=== PATIENT | female | born 1985 | race Caucasian/White ===

== ENCOUNTER → 2017-05-28 | Outpatient (CLI) | payer OTHER ==
[~2017-05-28] MED LIST: AMOX1TAB43 PO
== END | disposition home or self-care (01) ==
LOC: C.PAPS 14:30
PROVIDERS: ATTEND Obstetrics & Gynecology
DX: Z01.419 Encounter for gynecological examination (general) (routine) without abnormal findings (principal)

== ENCOUNTER 2021-08-15 12:19 | Observation (INO) ==
[2021-08-15] MEDS ORDERED: ONDANSETRON INJ 2 MG/ML 2 ML VIAL IV STA (14:27)
[2021-08-15] MEDS ORDERED: MoRPHine SULFATE 4 MG/ML 1 ML CARP\\VIAL IV STA ×2 (14:27→16:47)
--- NOTE | 2021-08-15 14:27 | Emergency Department Note ---
History of Present Illness General Chief complaint: Back Injury/Pain Stated complaint: SEVERE BACK PAIN,HX OF SURG Time Seen by Provider: 08/15/21 14:17 History of Present Illness Maximum Pain Intensity: 8 This is a 36-year-old female with a history of lumbar spine surgery in 2019 that presents to the emergency department via private vehicle with complaints of "severe back pain". Pain is in the left low back that radiates down the left leg to the ankle. The patient states that last week she "tweaked" her back and developed some back pain since that time. She states that she slipped on some ice. She denies striking the head or loss of consciousness. This past Friday her pain acutely worsened. Then worsened again this morning. She was on the floor and could not get up. She notes pain predominantly rating down her left leg. There is some numbness/tingling in the left leg. She denies any lower extremity weakness, bowel or bladder incontinence, numbness or tingling in ge nital region. Pain currently 10/10. She tried ibuprofen earlier today. No urinary symptoms. No abdominal pain. No fevers, chills, chest pain or shortness of breath. No recent illness. The patient states that August 2018 she underwent surgery at the L4-L5 region for herniated disc on the left side. There is no residual hardware. Patient states that she was doing well up until about a week ago. Surgery was performed in [place] by Dr. Salazar Mullen. Home Medications Medication Instructions Recorded Confirmed Type albuterol sulfate 90 mcg/actuation 1 - 2 puff INHALATION .Q4-6H PRN 03/22/20 08/15/21 History aerosol inhaler prenat.vits,anel,qau-kyyy-eeyva 1 tab PO DAILY 03/22/20 08/15/21 History ibuprofen 200 mg tablet 200 mg PO Q6H PRN 08/15/21 08/15/21 History Allergies Allergy/AdvReac Type Severity Reaction Status Date / Time morphine Allergy Intermediate Arm Verified 08/15/21 19:09 rash/itchy proximal to IV admininstration site. latex Allergy Unknown red rash Verified 08/15/21 15:49 with latex gloves Past Med/Surg History Medical History (Updated 08/16/21 @ 09:44 by Yohan Hair) Asthma "EXERCISE INDUCED" Chronic headache Dichorionic diamniotic twin gestation Encounter for anatomic survey H/O acute endometritis History of chicken pox Need for rhogam due to Rh negative mother Pyloric stenosis, congenital S/P REPAIR IN INFANCY Supervision of normal IUP (intrauterine ) in multigravida Surgical History (Updated 08/16/21 @ 09:44 by Yohan Hair) History of repair of pyloric stenosis INFANCY History of tooth extraction Previous delivery affecting , antepartum S/P section X2 [place] teeth extracted Family History Sister Asthma Brother Asthma Grandmother (Paternal) Breast cancer Denies family history of Ovarian cancer Colorectal cancer Social History Smoking Status: Never smoker Second Hand Exposure: No; Do You Dip or Chew Tobacco: No; Tobacco Cessation Education Requested by Patient: No Hx Alcohol Use: No Hx Substance Use: No Preferred Language: [place] Communication Ability: Effective Shipping Order Clerk Required: No Beliefs That Will Affect Care: None marital status: marital status details: Thor Dubose (36) Current Living Situation: Family Current Living Situation Comment: lives with spouse, 2 children, outside cat current occupational status: unemployed current occupation: homemaker Other Information That Helps Us Care for You: No Feels Safe at Home: Yes Safety Concerns: Feels Safe At This Time Assistive Devices: Walker Review of Systems A total of 10 systems reviewed and were otherwise negative Physical Exam Vital Signs Vital Signs - 24 hr 08/15/21 18:00 08/15/21 20:00 Pulse Rate [Left Finger] 72 72 Respiratory Rate 20 18 Respiratory Effort / Characteristics Non-Labored Spontaneous Non-Labored Spontaneous Respiratory Depth Normal Normal Respiratory Pattern Regular Regular Blood Pressure [Right Arm] 132/80 128/73 Blood Pressure Mean [Right Arm] 97 91 Blood Pressure Position [Right Arm] Sitting Sitting Pulse Oximetry 97 97 Oxygen Delivery Method Room Air Room Air VITAL SIGNS - Vital signs and nursing notes were reviewed. Stable and afebrile. GENERAL -36-year-old female appearing her stated age who is in no acute distress but appears to be in pain and is sitting at the bedside in a wheelchair. Communicates well with provider and answers questions appropriately. SKIN - Without rashes. No meningeal or petechial rash. HEAD - NC/AT. EYES -Sclera anicteric. LUNGS - Chest wall symmetric without accessory muscle use, intercostals retractions, or central cyanosis. Normal vesicular breath sounds CTA B/L. No wheezes, rales, or rhonchi appreciated. CARDIAC - RRR with S1/S2. No murmur, rubs, or gallops appreciated. EXTREMITIES - No clubbing or peripheral cyanosis. +5/5 strength noted in UE/LE bilaterally. NEUROLOGIC - Cranial nerves II through XII grossly intact. Sensory intact to light touch throughout. Patellar reflexes +2/4. PSYCH - A&O, and cooperates fully with examiner. Pt is very pleasant and interacts well with examiner. Course Administered Medications Acetaminophen (Acetaminophen 500 Mg Tab) 1,000 mg PO Q8H MAYTE Stop: 09/15/21 05:59 Last Admin: 08/16/21 14:04 Dose: 1,000 mg Documented by: [id number] Admin: 08/16/21 05:45 Dose: 1,000 mg Documented by: [id number] Dexamethasone 4 mg/ Syringe 1 mls @ 1 mls/min IV Q8H MAYTE Stop: 09/15/21 05:59 Last Admin: 08/16/21 05:46 Dose: 1 mls/min Documented by: [id number] Magnesium Sulfate/Dextrose (Magnesium Sulfate / D5w) 1 gm in 100 mls @ 50 mls/hr IV Q2H MAYTE Stop: 08/16/21 19:59 Last Admin: 08/16/21 14:04 Dose: 50 mls/hr Documented by: [id number] Ketorolac Tromethamine (Ketorolac 30 Mg/Ml Vial) 30 mg IV Q6H MAYTE Stop: 08/21/21 11:44 Last Admin: 08/16/21 13:00 Dose: 30 mg Documented by: [id number] Discontinued Medications Acetaminophen (Acetaminophen 325 Mg Tab) 1,000 mg PO Q8H MAYTE Stop: 09/14/21 21:44 Last Admin: 08/15/21 21:45 Dose: 1,000 mg Documented by: [id number] Acetaminophen (Acetaminophen 500 Mg Tab) Confirm Administered Dose 1,000 mg .ROUTE .STK-MED ONE Stop: 08/15/21 21:50 Last Admin: 08/15/21 21:50 Dose: Not Given Documented by: [id number] Dexamethasone Sodium Phosphate (DexamethasonePf 10 Mg/Ml Vial) 10 mg IV NOW ONE Stop: 08/15/21 19:06 Last Admin: 08/15/21 19:18 Dose: 10 mg Documented by: [id number] Diphenhydramine HCl (Diphenhydramine 50 Mg/Ml Vial) Confirm Administered Dose 50 mg .ROUTE .STK-MED ONE Stop: 08/15/21 17:12 Last Admin: 08/15/21 17:14 Dose: 25 mg Documented by: [id number] Ketorolac Tromethamine (Ketorolac Tromethamine 15 Mg/Ml Vial) 15 mg IV NOW STA Stop: 08/15/21 18:23 Last Admin: 08/15/21 18:28 Dose: 15 mg Documented by: [id number] Morphine Sulfate (Morphine Sulfate 4 Mg/Ml 1 Ml Carp\\Vial) 4 mg IV NOW STA Stop: 08/15/21 14:28 Last Admin: 08/15/21 15:24 Dose: 4 mg Documented by: [id number] Morphine Sulfate (Morphine Sulfate 4 Mg/Ml 1 Ml Carp\\Vial) 4 mg IV NOW STA Stop: 08/15/21 16:48 Last Admin: 08/15/21 17:07 Dose: 4 mg Documented by: [id number] Ondansetron HCl (Ondansetron Inj 2 Mg/Ml 2 Ml Vial) 4 mg IV NOW STA Stop: 08/15/21 14:28 Last Admin: 08/15/21 15:24 Dose: 4 mg Documented by: [id number] Medical Decision Making Laboratory Data Result diagrams: 08/15/21 20:20 08/15/21 20:20 Lab Results 08/15/21 08/15/21 08/15/21 Range/Units 20:20 20:20 20:20 WBC 11.18 H (4.8-10.8) K/uL RBC 4.30 (4.2-5.4) M/uL Hgb 13.4 (12.0-16.0) g/dL Hct 38.8 (37-47) % MCV 90.2 (80-100) fL MCH 31.2 (25-34) pg MCHC 34.5 (32-36) g/dL RDW Std Deviation 42.5 (36.4-46.3) fL RDW Coeff of Pamela 12.9 (11.5-14.5) % Plt Count 252 (130-400) K/uL MPV 10.6 H (7.4-10.4) fL Immature Gran % (Auto) 0.2 % Neut % (Auto) 81.8 % Lymph % (Auto) 14.5 % Glenn % (Auto) 3.0 % Eos % (Auto) 0.4 % Baso % (Auto) 0.1 % Neut # (Auto) 9.15 H (1.4-6.5) K/uL Lymph # (Auto) 1.62 (1.2-3.4) K/uL Glenn # (Auto) 0.33 (0.11-0.59) K/uL Eos # (Auto) 0.05 (0-0.5) K/uL Baso # (Auto) 0.01 (0-0.2) K/uL Immature Gran # (Auto) 0.02 (0.00-0.02) K/uL Sodium 137 (136-145) mmol/L Potassium 3.9 (3.5-5.1) mmol/L Chloride 104 (98-107) mmol/L Carbon Dioxide 26 (21-32) mmol/L Anion Gap 7 (3-11) BUN 12 (6-23) mg/dl Creatinine 0.62 (0.6-1.2) mg/dl Est Cr Clr Drug Dosing 119.7 ml/min Est GFR ( Amer) 136.4 ml/min Est GFR (Non-Af Amer) 117.6 ml/min BUN/Creatinine Ratio 19.4 (10-20) Glucose 102 H (70-99(Fasting)) mg/dl Calcium 9.6 (8.5-10.1) mg/dl Total Bilirubin 0.5 (0.2-1.0) mg/dl AST 20 (13-39) U/L ALT 32 (7-52) U/L Alkaline Phosphatase 72 (34-104) U/L Total Protein 7.9 (6.0-8.3) gm/dl Albumin 4.9 (3.4-5.0) gm/dl Globulin 3.0 (2.5-4.0) gm/dl Albumin/Globulin Ratio 1.6 (0.9-2) HCG, Qual Negative (Negative) SARS-CoV-2, RNA, NAAT (NEGATIVE) 08/15/21 Range/Units 20:40 WBC (4.8-10.8) K/uL RBC (4.2-5.4) M/uL Hgb (12.0-16.0) g/dL Hct (37-47) % MCV (80-100) fL MCH (25-34) pg MCHC (32-36) g/dL RDW Std Deviation (36.4-46.3) fL RDW Coeff of Pamela (11.5-14.5) % Plt Count (130-400) K/uL MPV (7.4-10.4) fL Immature Gran % (Auto) % Neut % (Auto) % Lymph % (Auto) % Glenn % (Auto) % Eos % (Auto) % Baso % (Auto) % Neut # (Auto) (1.4-6.5) K/uL Lymph # (Auto) (1.2-3.4) K/uL Glenn # (Auto) (0.11-0.59) K/uL Eos # (Auto) (0-0.5) K/uL Baso # (Auto) (0-0.2) K/uL Immature Gran # (Auto) (0.00-0.02) K/uL Sodium (136-145) mmol/L Potassium (3.5-5.1) mmol/L Chloride (98-107) mmol/L Carbon Dioxide (21-32) mmol/L Anion Gap (3-11) BUN (6-23) mg/dl Creatinine (0.6-1.2) mg/dl Est Cr Clr Drug Dosing ml/min Est GFR ( Amer) ml/min Est GFR (Non-Af Amer) ml/min BUN/Creatinine Ratio (10-20) Glucose (70-99(Fasting)) mg/dl Calcium (8.5-10.1) mg/dl Total Bilirubin (0.2-1.0) mg/dl AST (13-39) U/L ALT (7-52) U/L Alkaline Phosphatase (34-104) U/L Total Protein (6.0-8.3) gm/dl Albumin (3.4-5.0) gm/dl Globulin (2.5-4.0) gm/dl Albumin/Globulin Ratio (0.9-2) HCG, Qual (Negative) SARS-CoV-2, RNA, NAAT NEGATIVE (NEGATIVE) Imaging Data Radiologist's Impression: Lumbar Spine MRI 08/15/21 14:26 MR lumbar spine wo con CLINICAL HISTORY: L lumbar radiculopathy, cannot walk, hx surgery TECHNIQUE: Multiplanar sequences through the lumbar spine were obtained, without intravenous contrast. Comparison: Comparison is made to MRI lumbar spine 04/15/2020 FINDINGS: The alignment is anatomical. Degenerative changes are seen most prominent at L4-L5. L1-L2: No significant abnormality. L2-L3: No significant abnormality. L3-L4: No significant abnormality. L4-L5: There is a left greater than right posterior disc bulge with resulting mild canal stenosis and moderate left neuroforaminal stenosis. L5-S1: No significant abnormality. The spinal ligaments are intact, without evidence of disruption or abnormal signal intensity. The spinal cord is normal in signal intensity and there is no evidence of cord contusion. There is no evidence of an extradural, intradural, extramedullary or intramedullary lesion. Visualized soft tissues are normal. IMPRESSION: Interval worsening of left greater than right posterior disc bulge at L4-L5 with resulting mild canal stenosis and moderate left neural foraminal stenosis. ACT 112: Negative or not required by law. Electronically signed by: Kenton Rich M.D. 08/15/2021 6:34 PM MDM Narrative Patient was seen and evaluated as above in room C7. Review was performed of nursing notes and vital signs. I did review pertinent previous visits and patient history. After obtaining a thorough history and physical examination the above work up was performed. Patient presents to us today with low back pain. She has a well-documented history of lumbar radiculopathy. I did see the patient in December 2019 for similar and she underwent MRI at that time. On today's presentation her pain seems to be worse. No recent illness. No fevers. No evidence of cauda equina syndrome clinically. Options of care were discussed with the patient. IV access was established. She was medicated with IV morphine, IV Zofran with some relief. Second dose then provided prior to MRI of the L-spine which was felt to be warranted based on her symptoms at the present time. She then developed a slightly erythematous rash to the left arm proximal to the administration site in the IV and felt an odd sensation in the jaw/mouth region. No tongue or throat swelling. No systemic hives. No evidence of anaphylaxis. She was given 25 mg IV Benadryl. Symptoms then resolved. Upon returning from MRI pain was still present. 15 mg of IV Toradol was ordered. I reviewed the MRI results with the patient. Patient does have interval worsening of left greater than right posterior disc bulge at L4-L5 with resulting mild canal stenosis and moderate left neuroforaminal stenosis. IV Decadron then ordered after discussing benefits and risks. It is felt that the benefit outweighs the risk. She preferred to be discharged home to follow-up in the outpatient setting which I believe is reasonable. I then prepared her discharge instructions and sent a Medrol Dosepak and [place] to her pharmacy for pickup. Ambulatory trial then attempted and the patient simply stood near her wheelchair and was not able to move secondary to pain. We then discussed additional options and through shared decision making we will proceed with inpatient management. Do not believe that she requires emergent transfer or surgery at the present time however certainly her clinical course may change. Case discussed with the hospitalist service. Basic laboratory studies and Covid testing were negative for any emergent process. Please refer to further documentation regarding her stay. Being as though the patient is now being admitted, I did call the pharmacy at (21:30pm) to cancel the prescriptions that were sent. While in the department, I personally reevaluated the patient several times and each time the patient was found to be resting comfortably. The patient was educated upon management, educated upon todays findings/results, educated upon importance of follow up from today's visit, educated upon symptoms in which to return, had questions answered prior to discharge, verbalized understanding, and was discharged home in good condition. Case was discussed with the attending physician. GCS: 15 In the evaluation and treatment of this patient the following differential diagnosis entertained: Fracture, dislocation, subluxation, cauda equina syndrome, AAA, diverticulitis, appendicitis, torsion, osteomyelitis, piriformis syndrome, strain, sprain, among others. Impression & Plan Acute lumbar radiculopathy, Intractable low back pain, Abnormal magnetic resonance imaging of lumbar spine Discharge Plan Visit Data Chief Complaint: Back Injury/Pain Stated Complaint: SEVERE BACK PAIN,HX OF SURG ED Provider: Phil Cornelius ED Midlevel Provider: Robinson Pedraza Discharge Problem: Acute lumbar radiculopathy, Intractable low back pain, Abnormal magnetic re sonance imaging of lumbar spine Patient Disposition: Admitted As Inpatient Condition: Good Discharge Instructions Interventions: ED Discharge Assessment Last Done: 08/15/21 23:21
[2021-08-15] MEDS ORDERED: diphenhydrAMINE 50 MG/ML VIAL ONE (17:11)
[2021-08-15] MEDS ORDERED: KETOROLAC TROMETHAMINE 15 MG/ML VIAL IV STA (18:22)
--- NOTE | 2021-08-15 18:35 | Magnetic Resonance Report ---
MR lumbar spine wo con CLINICAL HISTORY: L lumbar radiculopathy, cannot walk, hx surgery TECHNIQUE: Multiplanar sequences through the lumbar spine were obtained, without intravenous contrast . Comparison: Comparison is made to MRI lumbar spine 04/15/2020 FINDINGS: The alignment is anatomical. Degenerative changes are seen most prominent at L4-L5. L1-L2: No significant abnormality. L2-L3: No significant abnormality. L3-L4: No significant abnormality. L4-L5: There is a left greater than right posterior disc bulge with resulting mild canal stenosis and moderate left neuroforaminal stenosis. L5-S1: No significant abnormality. The spinal ligaments are intact, without evidence of disruption or abnormal signal intensity. The spi nal cord is normal in signal intensity and there is no evidence of cord contusion. There is no eviden ce of an extradural, intradural, extramedullary or intramedullary lesion. Visualized soft tissues are normal. IMPRESSION: Interval worsening of left greater than right posterior disc bulge at L4-L5 with resulting mild canal stenosis and moderate left neural foraminal stenosis. ACT 112: Negative or not required by law. Electronically signed by: Kenton Rich M.D. 08/15/2021 6:34 PM
[2021-08-15] MEDS ORDERED: dexAMETHasone**PF** 10 MG/ML VIAL IV ONE (19:05)
[2021-08-15 20:41] LABS: Basophils # (auto) 0.01 K/uL (0-0.2); Basophils % (auto) 0.1 %; Eosinophils # (auto) 0.05 K/uL (0-0.5); Eosinophils % (auto) 0.4 %; Hematocrit (blood only) 38.8 % (37-47); Hemoglobin 13.4 g/dL (12.0-16.0); Immature Granulocytes # (auto) 0.02 K/uL (0.00-0.02); Immature Granulocytes % (auto) 0.2 %; Lymphocytes # (auto) 1.62 K/uL (1.2-3.4); Lymphocytes % (auto) 14.5 %; Mean Corpuscular Hemoglobin 31.2 pg (25-34); Mean Corpuscular Hgb Conc 34.5 g/dL (32-36); Mean Corpuscular Volume 90.2 fL (80-100); Mean Platelet Volume 10.6 fL (7.4-10.4); Monocytes # (auto) 0.33 K/uL (0.11-0.59); Neutrophils # (auto) 9.15 K/uL (1.4-6.5); Neutrophils % (auto) 81.8 %; Platelet Count 252 K/uL (130-400); RDW Coefficient of Variation 12.9 % (11.5-14.5); RDW Standard Deviation 42.5 fL (36.4-46.3); White Blood Count 11.18 K/uL (4.8-10.8)
[2021-08-15 21:00] LABS: Albumin Globulin Ratio 1.6 (0.9-2); Albumin Level 4.9 gm/dl (3.4-5.0); BUN Creatinine Ratio 19.4 (10-20); Bilirubin,Total 0.5 mg/dl (0.2-1.0); Calcium 9.6 mg/dl (8.5-10.1); Creatinine Clr Calc Pharmacy 119.7 ml/min; Est GFR (African American) 136.4 ml/min; Est GFR (Non-African American) 117.6 ml/min; Potassium 3.9 mmol/L (3.5-5.1); Total Protein 7.9 gm/dl (6.0-8.3)
[2021-08-15 21:03] LABS: Pregnancy Test, Serum Negative (Negative)
--- NOTE | 2021-08-15 21:22 | History & Physical Report ---
Date of Service August 15, 2021 Assessment & Plan (1) Acute lumbar radiculopathy: Plan: 36 yo F Hx mild intermittent asthma admitted for acute lumbar radiculopathy. Lumbar radiculopathy: -Presented with several days of worsening lumbar back pain in the setting of several injuries this week. -Lumbar MRI shows L>R posterior disc bulge with mild canal stenosis and moderate neuroforaminal stenosis. -Already received morphine 4mg x2, Decadron 10mg IV in ER with mild improvement in pain and still with difficulty with moving. -Will continue Decadron 4mg IV q8h for now for lumbar radiculopathy. -Scheduled Tylenol 1000mg q8h, with Toradol as needed for pain. Can add opiates if pain is refractory to these medications. -No evidence of cauda equina on exam. -Consider Ortho consult if worsening symptoms or not improving despite the above measures. -Encouraged ambulation as able. Code Status: FULL CODE FEN: Regular diet DVT ppx: SCDs; low risk Dispo: Med/Surg History of Present Illness Primary Care Provider: WILD Prieto 36 yo F Hx mild intermittent asthma presented to the ER for several days of lumbar area back pain which acutely worsened earlier today. Denies associated numbness or tingling of the lower extremities, bowel or bladder incontinence. Timelines is as follows: Last Friday patient was reaching down for her laundry basket and "tweaked" her lumbar area. Later that same day she was walking to her chicken coop and slipped without falling and caught herself, causing further pain. Pain started to worsen this past Friday. On Friday she went to the chiropractor for an adjustment without much improvement in pain. Earlier today she was reaching for one of her children in the backseat and had acute worsening of the pain causing her to be unable to walk due to pain. In the ER patient was given Decadron, Toradol, and morphine with some improvement in pain but still with severe pain with movement. Hospitalist service consulted for admission for pain control. Allergies Allergy/AdvReac Type Severity Reaction Status Date / Time morphine Allergy Intermediate Arm Verified 08/15/21 19:09 rash/itchy proximal to IV admininstration site. latex Allergy Unknown red rash Verified 08/15/21 15:49 with latex gloves Home Medications Medication Instructions Recorded Confirmed Type albuterol sulfate 90 mcg/actuation 1 - 2 puff INHALATION .Q4-6H PRN 03/22/20 08/15/21 History aerosol inhaler prenat.vits,anel,[id number]-[id number] 1 tab PO DAILY 03/22/20 08/15/21 History ibuprofen 200 mg tablet 200 mg PO Q6H PRN 08/15/21 08/15/21 History Past Med/Surg History Medical History (Updated 08/16/21 @ 09:44 by Yohan Hair) Asthma "EXERCISE INDUCED" Chronic headache Dichorionic diamniotic twin gestation Encounter for anatomic survey H/O acute endometritis History of chicken pox Need for rhogam due to Rh negative mother Pyloric stenosis, congenital S/P REPAIR IN INFANCY Supervision of normal IUP (intrauterine ) in multigravida Surgical History (Updated 08/16/21 @ 09:44 by Yohan Hair) History of repair of pyloric stenosis INFANCY History of tooth extraction Previous delivery affecting , antepartum S/P section X2 [place] teeth extracted Family History Sister Asthma Brother Asthma Grandmother (Paternal) Breast cancer Denies family history of Ovarian cancer Colorectal cancer Social History Smoking Status: Never smoker Second Hand Exposure: No; Do You Dip or Chew Tobacco: No; Tobacco Cessation Education Requested by Patient: No Hx Alcohol Use: No Hx Substance Use: No Preferred Language: Japanese Communication Ability: Effective Consulting Technical Manager Required: No Beliefs That Will Affect Care: None marital status: marital status details: Thor Dubose (36) Current Living Situation: Family Current Living Situation Comment: lives with spouse, 2 children, outside cat current occupational status: unemployed current occupation: homemaker Other Information That Helps Us Care for You: No Feels Safe at Home: Yes Safety Concerns: Feels Safe At This Time Assistive Devices: Walker Review of Systems Review of Systems: All systems reviewed & are unremarkable except as noted in HPI & below Constitutional: + malaise; no fever and no chills Respiratory: no cough and no dyspnea Cardiovascular: no chest pain, no palpitations and no edema Gastrointestinal: no abdominal pain, no constipation and no diarrhea/loose stools Genitourinary: no dysuria and no hematuria Physical Exam Constitutional: WD/WN, vitals as above Eyes: PERRL, conjunctivae normal, anicteric sclerae ENMT: external ear and nose normal, oropharynx normal Neck: normal visual inspection Respiratory: normal respiratory effort, lungs clear to auscultation Cardiovascular: RRR, no murmur, no edema Gastrointestinal (Abdomen): normal bowel sounds, soft, nontender, no hepatos plenomegaly Musculoskeletal: no cyanosis or clubbing, extremities motor strength 5/5 Skin: no rashes, warm and dry Neurologic: Normal speech. PERRLA, EOMI, no nystagmus. Normal visual acuity bilaterally. Bilateral UE, LE, and face without sensory or motor deficits. DTRs normal No decreased sensation over bilateral LE Psychiatric: A+Ox3, euthymic affect Results & Data Results & Data ([facility]) Vital Signs (Past 12 Hours) Vital Signs Temp Pulse Pulse Resp BP BP Pulse Ox 08/15/21 18:00 72 20 132/80 97 08/15/21 16:00 70 20 130/82 98 08/15/21 14:16 69 20 116/67 98 08/15/21 12:22 36.6 C 84 18 140/82 98 Supervising Physician Co-Signing Physician Notes Attending addendum: I have physically seen this patient, have supervised the medical residents activities, and agree with the H&P unless as otherwise noted. Assessment and Plan: Low back pain/lumbar radiculopathy- Status post Decadron 10 mg IV and morphine 4 mg IV x2 Decadron 4 mg IV every 8 hours Acetaminophen 1000 mg p.o. every 8 hours as needed mild pain or fever Follows with [facility] orthopedic spine surgery remaining orders and notations as noted Resident Activity Tracking Resident Involvement: Resident Care Provided Care Provided: Adult Hospital Medicine
[2021-08-15] MEDS ORDERED: KETOROLAC 30 MG/ML VIAL IV PRN (21:37)
[2021-08-15] MEDS ORDERED: ACETAMINOPHEN 325 MG TAB PO SCH (21:45)
[2021-08-15] MEDS ORDERED: ACETAMINOPHEN 500 MG TAB ONE (21:49)
[2021-08-15] MEDS ORDERED: ONDANSETRON INJ 2 MG/ML 2 ML VIAL IV PRN (23:56)
[2021-08-15] MEDS ORDERED: POLYETHYLENE (MIRALAX) 17 GM PACK PO PRN (23:56)
[2021-08-16] MEDS: ACETAMINOPHEN 500 MG TAB PO SCH ×3 (05:45→21:14)
[2021-08-16] MEDS: dexAMETHasone 4 MG in SYRINGE 0 ML IV SCH ×3 (05:46→21:14)
--- NOTE | 2021-08-16 09:33 | Medical Student Progress Note ---
Date of Service August 16, 2021 Assessment & Plan (1) Acute lumbar radiculopathy: Plan: This is a 36 year old female with a history of L4-L5 disc herniation and radiculopathy s/p L4-L5 microdiscectomy in 2019 who presents for intractable back pain. Back Pain - biomechanical vs. radicular: no neurological symptoms, pain more localized to her lower back than sciatic pain raises suspicion for mostly biomechanical with some radicular component - Lumbar MRI shows L4-L5 L>R posterior disc bulge with mild canal stenosis and moderate neuroforaminal stenosis - Scheduled Tylenol, Decadron, Toradol for pain control and Valium and Magnesium to reduce muscle spasticity - Ortho consulted, recommends epidural injections - PT/OT ordered Code Status: FULL CODE FEN: Regular diet DVT ppx: SCDs; low risk Dispo: Med/Surg (2) Intractable low back pain: (3) Abnormal magnetic resonance imaging of lumbar spine: (4) History of back surgery: Admission and Anticipated Discharge Date Admission Date: August 15, 2021 Supervising Attestation I personally examined the patient and verified all fields points of history and exam, discussed case, and agree with decision making with P Reginaldo MS4 back and buttock pain predominate. radiation down the leg present but less intense than the back pain itself. started with basically "moving the wrong way" and then other movements from there made things worse. no weakness vitals noted nad laying still in bed. sl different sensation dorsum of foot L than R but both present. great toe raise 5/5 b/l. motor appears overall 5/5 b/l. ost shows L sided pelvic musculature in region of piriformis to be high tone/tender/decreased ROM - LAS - tissue texture improved, pt tolerated well back pain -seems to be both biomechanical and radicular -no urgent surgical indications -mechanism of injury fits more with biomechanical - ?biomechanical cause unmasking/exacerbating radiculopathy vs both concomitantly - since nothing urgent we discussed/she agrees - trial of aggressive care for the biomechanical and spasms component and then depending on residual with radicular sx can consider management specific to that if needed - but likely w decompression (traction, not surgical) and injections -- but also possible that radicular sx will resolve ---mag, APAP, toradol, valium, OMT (mostly pumping breastmilk to relieve pressure at this point - babies mostly weaned - no problem with "pump and dump" somatic dysfunction pelvis - OMT as above otherwise as above Subjective Patient confirmed HPI from H&P. Last week she "tweaked" her back and had progressively worsening pain to the point where she was on the floor and could not get up. Also confirmed that in August 2018 she had surgery at the L4-L5 region for herniated disc on the left side, performed by Dr. Mullen at [place]. She denies numbness, weakness, tingling and incontinence. Pain is in the left low back that occasionally radiates down the left leg to the ankle but is most concentrated in her lower back. Review of Systems Review of Systems: per HPI Physical Exam Constitutional: WD/WN, vitals as above Eyes: PERRL, conjunctivae normal, anicteric sclerae ENMT: external ear and nose normal, oropharynx normal Neck: trachea midline, no thyromegaly Respiratory: normal respiratory effort, lungs clear to auscultation Cardiovascular: RRR, no murmur, no edema Musculoskeletal: ttp to L lower lumbar region, patient has severe pain with active or passive motion of her L leg Neurologic: strength 5/5 in both lower extremities, sensation intact in both lower extremities Results & Data ([facility]) Vital Signs (Past 12 Hours) Vital Signs Temp Pulse Resp BP Pulse Ox 08/16/21 07:46 36.9 C 66 16 100/54 L 95 08/16/21 00:05 36.5 C 77 19 105/63 98 08/15/21 23:40 36.5 C 77 19 105/63 98
--- NOTE | 2021-08-16 11:07 | Orthopedic Consultation ---
Date of Consultation August 16, 2021 Assessment & Plan (1) Acute lumbar radiculopathy: MRI lumbar spine performed at [facility] available for review. It demonstrates recurrent lumbar disc herniation L4-5 on the left. This is concurrent with her symptom complex. I had discussion with her today regarding treatment options. At this point we at least attempt a trial of epidural injections. However if these fail to provide a long-term relief and she has continued limitation she may ultimately require revision surgical procedure. History of Present Illness Reason for Consultation: Back and left leg pain Attending Physician: Arnoldo Bird DO History of Present Illness This is a very pleasant 36-year-old female who presents with severe left leg radiculopathy. She states her symptoms began approximately a week ago and have progressed and are quite limiting in nature. The pain involves lumbosacral junction rating into left buttock posterior thigh to the dorsum of her foot. She is not appreciate any gross weakness. She denies numbness at this time. She does have a history of a previous laminectomy at L4-L5 several years ago. She is a mother managing 1-year-old twins. Right lower extremities asymptomatic. Allergies Allergy/AdvReac Type Severity Reaction Status Date / Time morphine Allergy Intermediate Arm Verified 08/15/21 19:09 rash/itchy proximal to IV admininstration site. latex Allergy Unknown red rash Verified 08/15/21 15:49 with latex gloves Home Medications Medication Instructions Recorded Confirmed Type albuterol sulfate 90 mcg/actuation 1 - 2 puff INHALATION .Q4-6H PRN 03/22/20 08/15/21 History aerosol inhaler prenat.vits,anel,[id number] 1 tab PO DAILY 03/22/20 08/15/21 History ibuprofen 200 mg tablet 200 mg PO Q6H PRN 08/15/21 08/15/21 History Patient History Medical History (Updated 08/16/21 @ 09:44 by Yohan Hair) Asthma "EXERCISE INDUCED" Chronic headache Dichorionic diamniotic twin gestation Encounter for anatomic survey H/O acute endometritis History of chicken pox Need for rhogam due to Rh negative mother Pyloric stenosis, congenital S/P REPAIR IN INFANCY Supervision of normal IUP (intrauterine ) in multigravida Surgical History (Updated 08/16/21 @ 09:44 by Yohan Hair) History of repair of pyloric stenosis INFANCY History of tooth extraction Previous delivery affecting , antepartum S/P section X2 [place] teeth extracted Family History Sister Asthma Brother Asthma Grandmother (Paternal) Breast cancer Denies family history of Ovarian cancer Colorectal cancer Social History Smoking Status: Never smoker Second Hand Exposure: No; Do You Dip or Chew Tobacco: No; Tobacco Cessation Education Requested by Patient: No Hx Alcohol Use: No Hx Substance Use: No Preferred Language: Khmer Communication Ability: Effective Plastics Fabricator Or Welder Required: No Beliefs That Will Affect Care: None marital status: marital status details: Thor Sedrick (34) Current Living Situation: Family Current Living Situation Comment: lives with spouse, 2 children, outside cat current occupational status: unemployed current occupation: homemaker Other Information That Helps Us Care for You: No Feels Safe at Home: Yes Safety Concerns: Feels Safe At This Time Assistive Devices: None Physical Exam Physical Exam: On exam she has severe tension signs straight leg raising on the left. She has reasonable strength what appears to be a five or five left dorsiflexion extensor hallucis longus quadriceps. She has full sensation to cold and light touch. Results & Data ([facility]) Vital Signs (Past 12 Hours) Vital Signs Temp Pulse Resp BP Pulse Ox 08/16/21 07:46 36.9 C 66 16 100/54 L 95 08/16/21 00:05 36.5 C 77 19 105/63 98 08/15/21 23:40 36.5 C 77 19 105/63 98
[2021-08-16] MEDS: KETOROLAC 30 MG/ML VIAL IV SCH ×2 (13:00→21:03)
[2021-08-16] MEDS ORDERED: diazePAM 2 MG TABLET PO SCH (14:00)
[2021-08-16] MEDS: MAGNESIUM SULFATE / D5W 1 GM/100 ML BAG IV SCH ×4 (14:04→23:15)
--- NOTE | 2021-08-16 18:36 | Hospitalist Progress Note ---
Date of Service August 16, 2021 Assessment & Plan Admission and Anticipated Discharge Date Admission Date: August 15, 2021 Results & Data Results & Data ([facility]) Vital Signs (Past 12 Hours) Vital Signs Temp Pulse Resp BP Pulse Ox 08/16/21 15:24 97.7 F 69 16 105/56 L 96 08/16/21 07:46 98.4 F 66 16 100/54 L 95 PG Care Time/CCT Total # of Minutes Spent Total Time Spent with Patient: Total time spent is greater than 50% in coordination of care (as documented) at patient's floor/unit and/or counseling patient: Coding Level of Care Code None CPT Codes Musculoskeletal - Musculoskeletal: 65246 [address] Tr 1-2 Body regions ([id number])
--- NOTE | 2021-08-16 18:36 | Billing Data ---
Date of Service August 16, 2021 Coding Level of Care Code 99238 Subseq Obs Care Lvl 3
--- NOTE | 2021-08-16 20:34 | Billing Data ---
Date of Service August 16, 2021 Coding Level of Care Code INT OBSERVATION CARE 70M LVL 3
[2021-08-16] MEDS ORDERED: diazePAM 5 MG TABLET PO SCH (21:00)
[2021-08-17] MEDS: KETOROLAC 30 MG/ML VIAL IV SCH ×3 (00:43→12:11)
[2021-08-17] MEDS: ACETAMINOPHEN 500 MG TAB PO SCH ×2 (05:36→13:53)
[2021-08-17] MEDS: dexAMETHasone 4 MG in SYRINGE 0 ML IV SCH ×2 (05:36→13:57)
--- NOTE | 2021-08-17 07:24 | Medical Student Progress Note ---
Date of Service August 17, 2021 Assessment & Plan (1) Acute lumbar radiculopathy: Plan: This is a 36 year old female with a history of L4-L5 disc herniation and radiculopathy s/p L4-L5 microdiscectomy in 2019 who presents for intractable back pain. Back Pain - biomechanical vs. radicular: no neurological symptoms, pain more localized to her lower back than sciatic pain raises suspicion for mostly biomechanical with some radicular component - Lumbar MRI shows L4-L5 L>R posterior disc bulge with mild canal stenosis and moderate neuroforaminal stenosis - Scheduled Tylenol, Decadron, Toradol for pain control and Valium and Magnesium to reduce muscle spasticity - Ortho consulted, recommends epidural injections and consulted pain management - PT/OT ordered Code Status: FULL CODE FEN: Regular diet DVT ppx: SCDs; low risk Dispo: Med/Surg (2) Intractable low back pain: (3) Abnormal magnetic resonance imaging of lumbar spine: (4) History of back surgery: Admission and Anticipated Discharge Date Admission Date: August 15, 2021 Results & Data ([facility]) Vital Signs (Past 12 Hours) Vital Signs Temp Pulse Resp BP Pulse Ox 08/16/21 22:35 36.7 C 75 16 103/52 L 96
[2021-08-17] MEDS ORDERED: oxyCODONE HCL IR 5 MG TAB (IMMEDIATE RELEASE) PO PRN (08:45)
--- NOTE | 2021-08-17 09:00 | Pain Management Consultation ---
Date of Consultation August 17, 2021 Assessment & Plan (1) History of back surgery: (2) Acute lumbar radiculopathy: Recommend discharge to home on oral steroids and oxycodone. We will arran ge for the patient to receive a lumbar epidural injection on an outpatient basis next week at our office. She will be contacted with the details. Thank you for the consultation. Please call with any questions or concerns. History of Present Illness Reason for Consultation: Lumbar radiculopathy Attending Physician: Arnoldo Bird DO History of Present Illness This is a 36 year old female that has been admitted to the [facility] for lumbar radiculopathy. She slipped on ice last week and twisted her back. Pain is located along the left low back and radiates along the left leg in an L5 distribution to the foot. She describes a sharp shooting pain. Pain is aggravated with weightbearing, walking, standing. She does have a significant history of a left L4-L5 microdiscectomy [address] Mullen at [facility]. Patient states that the pain does feel similar to what it was previously. At home she was taking Tylenol and ibuprofen without any significant pain relief. She was evaluated by Dr. Pickett and recommended to try epidural steroid injections prior to considering surgical intervention. Patient does feel like the left leg is slightly weaker than the right. No bowel/bladder incontinence, saddle anesthesia, foot drop. Case discussed with Dr. Yumiko Campos Pain Assessment Full Body Front + Back: 1. 2. Allergies Allergy/AdvReac Type Severity Reaction Status Date / Time morphine Allergy Intermediate Arm Verified 08/15/21 19:09 rash/itchy proximal to IV admininstration site. latex Allergy Unknown red rash Verified 08/15/21 15:49 with latex gloves Home Medications Medication Instructions Recorded Confirmed Type albuterol sulfate 90 mcg/actuation 1 - 2 puff INHALATION .Q4-6H PRN 03/22/20 08/15/21 History aerosol inhaler prenat.vits,anel,kxa-vsqk-gebrb 1 tab PO DAILY 03/22/20 08/15/21 History ibuprofen 200 mg tablet 200 mg PO Q6H PRN 08/15/21 08/15/21 History Patient History Medical History Asthma "EXERCISE INDUCED" Chronic headache Dichorionic diamniotic twin gestation Encounter for anatomic survey H/O acute endometritis History of chicken pox Need for rhogam due to Rh negative mother Pyloric stenosis, congenital S/P REPAIR IN INFANCY Supervision of normal IUP (intrauterine ) in multigravida Surgical History History of repair of pyloric stenosis INFANCY History of tooth extraction Previous delivery affecting , antepartum S/P section X2 [place] teeth extracted Family History Sister Asthma Brother Asthma Grandmother (Paternal) Breast cancer Denies family history of Ovarian cancer Colorectal cancer Social History Smoking Status: Never smoker Second Hand Exposure: No; Do You Dip or Chew Tobacco: No; Tobacco Cessation Education Requested by Patient: No Hx Alcohol Use: No Hx Substance Use: No Preferred Language: Turkish Communication Ability: Effective Train System Operator Required: No Beliefs That Will Affect Care: None marital status: marital status details: Thor Dubose (34) Current Living Situation: Family Current Living Situation Comment: lives with spouse, 2 children, outside cat current occupational status: unemployed current occupation: homemaker Other Information That Helps Us Care for You: No Feels Safe at Home: Yes Safety Concerns: Feels Safe At This Time Assistive Devices: Walker Physical Exam Physical Exam: GENERAL: This is a 36 year old female that does not appear in any acute distress. HEAD/FACE: Normocephalic and atraumatic. EYES: No drainage or conjunctival injection. ENT: Nose without bleeding or discharge. Oral mucosa moist. NECK: Full ROM without apparent pain. No swelling or masses noted. RESPIRATORY: Patient with unlabored breathing. No signs of respiratory distress. CHEST/AXILLA: Chest movement symmetrical. No deformities noted. CARDIOVASCULAR: Patients heart rate is regular, with pulse rate as documented. No edema noted. ABDOMEN/GI: No distension BACK: Moves without difficulty. There is mild tenderness along the left L4-5 region. No SI joint tenderness. Mild muscle spasm of the left paravertebral musculature. SKIN: Friend, warm and dry. No rash noted. MS/EXTREMITY: No swelling, no deformities. Moving extremities appropriately. 5/5 strength of the lower extremities. Positive straight leg raise on the left, negative on the right. NEURO: Alert and appears oriented. Speech is fluent. Cranial Nerves are grossly intact. PSYCH: Alert, pleasant, affect is calm Results ([facility]) Diagnostic Review MRI Findings: MR lumbar spine wo con CLINICAL HISTORY: L lumbar radiculopathy, cannot walk, hx surgery TECHNIQUE: Multiplanar sequences through the lumbar spine were obtained, without intravenous contrast. Comparison: Comparison is made to MRI lumbar spine 04/15/2020 FINDINGS: The alignment is anatomical. Degenerative changes are seen most prominent at L4-L5. L1-L2: No significant abnormality. L2-L3: No significant abnormality. L3-L4: No significant abnormality. L4-L5: There is a left greater than right posterior disc bulge with resulting mild canal stenosis and moderate left neuroforaminal stenosis. L5-S1: No significant abnormality. The spinal ligaments are intact, without evidence of disruption or abnormal signal intensity. The spinal cord is normal in signal intensity and there is no evidence of cord contusion. There is no evidence of an extradural, intradural, extramedullary or intramedullary lesion. Visualized soft tissues are normal. IMPRESSION: Interval worsening of left greater than right posterior disc bulge at L4-L5 with resulting mild canal stenosis and moderate left neural foraminal stenosis. ACT 112: Negative or not required by law. Electronically signed by: Kenton Rich M.D. 08/15/2021 6:34 PM
[2021-08-17 09:10] LABS: Anion Gap 6 (3-11); BUN Creatinine Ratio 30.6 (10-20); Blood Urea Nitrogen 15 mg/dl (6-23); Calcium 8.4 mg/dl (8.5-10.1); Carbon Dioxide 24 mmol/L (21-32); Chloride 108 mmol/L (98-107); Creatinine Clr Calc Pharmacy 167.8 ml/min; Est GFR (African American) 147.3 ml/min; Est GFR (Non-African American) 127.1 ml/min; Glucose 121 mg/dl (70-99(Fasting)); Magnesium 2.5 mg/dl (1.7-2.4); Sodium 138 mmol/L (136-145)
--- NOTE | 2021-08-17 12:52 | Discharge Summary ---
Date of Service August 17, 2021 Admission HPI Per Admitting Provider 36 yo F Hx mild intermittent asthma presented to the ER for several days of lumbar area back pain which acutely worsened earlier today. Denies associated numbness or tingling of the lower extremities, bowel or bladder incontinence. Timelines is as follows: Last Friday patient was reaching down for her laundry basket and "tweaked" her lumbar area. Later that same day she was walking to her chicken coop and slipped without falling and caught herself, causing further pain. Pain started to worsen this past Friday. On Friday she went to the chiropractor for an adjustment without much improvement in pain. Earlier today she was reaching for one of her children in the backseat and had acute worsening of the pain causing her to be unable to walk due to pain. In the ER patient was given Decadron, Toradol, and morphine with some improvement in pain but still with severe pain with movement. Hospitalist service consulted for admission for pain control. Principal Diagnosis Back pain Discharge Exam Constitutional WD/WN, vitals as above Eyes PERRL, conjunctivae normal, anicteric sclerae Neck trachea midline, no thyromegaly Respiratory normal respiratory effort, lungs clear to auscultation Cardiovascular RRR, no murmur, no edema Chest (Breasts) normal inspection/palpation of breasts Gastrointestinal (Abdomen) normal bowel sounds, soft, nontender, no hepatosplenomegaly Musculoskeletal ttp to L lower lumbar region, patient has severe pain with active or passive motion of her L leg Neurologic strength 5/5, sensation intact in both lower extremities Discharge Data Allergies Allergy/AdvReac Type Severity Reaction Status Date / Time morphine Allergy Intermediate Arm Verified 08/15/21 19:09 rash/itchy proximal to IV admininstration site. latex Allergy Unknown red rash Verified 08/15/21 15:49 with latex gloves Consultations 08/15/21 20:55 ED Decision to Admit Stat 08/16/21 08:58 Consult Orthopedic Surgery Routine 08/16/21 11:07 Consult Pain Management Routine Ordered Studies 08/17/21 08/17/21 Range/Units 09:21 07:59 Sodium 138 (136-145) mmol/L Potassium 3.9 TNP Chloride 108 H (98-107) mmol/L Carbon Dioxide 24 (21-32) mmol/L Anion Gap 6 (3-11) BUN 15 (6-23) mg/dl Creatinine 0.49 L (0.6-1.2) mg/dl Est Cr Clr Drug Dosing 167.8 ml/min Est GFR ( Amer) 147.3 ml/min Est GFR (Non-Af Amer) 127.1 ml/min BUN/Creatinine Ratio 30.6 H (10-20) Glucose 121 H (70-99(Fasting)) mg/dl Calcium 8.4 L (8.5-10.1) mg/dl Magnesium 2.5 H (1.7-2.4) mg/dl Lumbar Spine MRI 08/15/21 14:26 MR lumbar spine wo con CLINICAL HISTORY: L lumbar radiculopathy, cannot walk, hx surgery TECHNIQUE: Multiplanar sequences through the lumbar spine were obtained, without intravenous contrast. Comparison: Comparison is made to MRI lumbar spine 04/15/2020 FINDINGS: The alignment is anatomical. Degenerative changes are seen most prominent at L4-L5. L1-L2: No significant abnormality. L2-L3: No significant abnormality. L3-L4: No significant abnormality. L4-L5: There is a left greater than right posterior disc bulge with resulting mild canal stenosis and moderate left neuroforaminal stenosis. L5-S1: No significant abnormality. The spinal ligaments are intact, without evidence of disruption or abnormal signal intensity. The spinal cord is normal in signal intensity and there is no evidence of cord contusion. There is no evidence of an extradural, intradural, extramedullary or intramedullary lesion. Visualized soft tissues are normal. IMPRESSION: Interval worsening of left greater than right posterior disc bulge at L4-L5 with resulting mild canal stenosis and moderate left neural foraminal stenosis. ACT 112: Negative or not required by law. Electronically signed by: Kenton Rich M.D. 08/15/2021 6:34 PM Hospital Course (1) Acute lumbar radiculopathy: This is a 36 year old female with a history of L4-L5 disc herniation and radiculopathy s/p L4-L5 microdiscectomy in 2019 who presents for intractable back pain. Back Pain - patient presented with a weeklong history of progressively worsening back pain after falling on ice and "tweaking" her back - pain appeared to have both biomechanical and radicular components: most of her pain does seem to be concentrated in her lower back and buttock, but she also complains of significant pain that shoots down her leg and into her foot - no weakness, bowel/bladder incontinence, lack of sensation - Lumbar MRI shows L4-L5 L>R posterior disc bulge with mild canal stenosis and moderate neuroforaminal stenosis - She was given tylenol, decadron, toradol for pain control and valium and magnesium for muscle spasticity; none of these helped - Ortho consulted, recommended pain management consult prior to surgical consideration; pain management recommended discharge to home with oxycodone and oral steroid, scheduled for lumbar epidural steroid injection on 08/23/21 (2) Intractable low back pain: (3) Abnormal magnetic resonance imaging of lumbar spine: (4) History of back surgery: Total Time Total Time Spent Total Time Spent (In Minutes): <30 minutes Discharge Plan Discharge Items Patient Disposition: Home - Self-Care Reason For Visit: ACUTE LUMBAR RADICULOPATHY, BACK PAIN Discharge Diagnosis: back pain - see below Condition on Discharge: Good Activity: Resume your previous activity Non-emergency contact: Primary Care Provider and Specialist Call non-emergency contact if: you have any medication questions and your symptoms worsen Follow-up/Referrals: Cordelia Gonzalez CRNP [Primary Care Provider] - 08/24/21 1:30 pm (APPT WITH [facility]) Diet: Regular Addtl Attending Provider Instructions: back pain -while the pain appears to be both biomechanical (muscle/ligamentous) and radicular (pinched nerve) - the fact that we treated pretty aggressively for the biomechanical part of it and really got no improvement makes it appear that the pinced nerve is really probably the primary problem, and it is, in turn, causing the rest -you fortunately are not showing any urgent need for a back surgery (motor weakness/muscle weakness - like it sounds like you had before the last surgery, or alarming signs of spinal cord compression like sudden loss of control of bowels or bladder, or numbness in your groin) we can hopefully manage this avoiding a future surgery -as we discussed, barring "red flag" symptoms - like outlined above - a good percentage of people will actually eventually get better from disc/nerve issues "on their own" - and so if we are able to keep symptoms under control, there's a real chance that your body can stabilize all of this and you actually get better - not just that the medicines and injections are a "band-aid" delaying an inevitable surgery. since you've had the prior back surgery you're going to be more likely to go down that road as compared to someone who hadn't, but it's still a reasonable guess to say that there's a ?1 in 3 chance (or so) that managing this conservatively keeps symptoms under control, your body heals, and you can avoid a future surgery outright. -for now, the main goal will be pain control - with medications and then the injections -medications: we'll do a "mix and match" approach with the medicines so you can dial things up or down as much as you need, without having it be just one medicine, "all or none" -tylenol (acetaminophen) - you can use this for mild pain, and, we often see that using tylenol as a "foundation" will make the other pain medicines more effective (sort of "2+2=5") -you can take up to 2000mg of tylenol daily very safely (OTC comes as a 500mg or 650mg pill - so you can use it every ~6 hours or so) -ibuprofen - we'll look at this as used for moderate pain. I'd recommend 600mg-800mg (each OTC pill is 200mg - so 3-4 of those) up to every 6 hours as needed. the most common side effect that we see with ibuprofen is that it can cause an upset stomach - to that end take it with food. also don't take any from 08/22 on -- typically the pain management docs like you to be off it for 24hrs before an injection -oxycodone - a moderate potency narcotic, keep the oxycodone on hand just for severe pain -- ie you've taken the tylenol and ibuprofen, and things are still really painful. as we discussed, my guess is you're probably use this really infrequently, and most likely just at bedtime if the pain is too bad to let you sleep. the main short term side effects we see are being groggy or feeling a bit slow mentally - so definitely don't take it if you need to drive, etc. it can be constipating - but usually only if you're needing it pretty often. it does get into breast milk, so i would "pump and dump" for a good 12hrs after if you needed to take a dose -injection: you're set up with Dr Campos at the pain management office on [address] for 08/23 @ 845am. they like you to not eat or drink that morning. as we discussed, often the injections will help over time - sometimes it does help right away, but frequently things will actually get a little worse for a few days to a week before getting better (so don't lose heart if things feel a bit worse at first after) - again the goal here is if we're able to get pain under control to where things are good enough, often the body will heal the rest of the situation and reduce or eliminate the need for another surgery. -we'll also send you with a prescription for prednisone to finish out 5 more days of steroids. what we look for there is that the steroids can sometimes shrink how swollen and inflamed everything is and alleviate symptoms. it doesn't always help, but it does often enough that it's worth trying. in short courses like this, steroids will often just have the side effects of making you hungry or hyper (so take them in the morning) Pending Studies at Discharge: No Stand-Alone Forms: My [facility] SafetyTat, Smoking Cessation Medications and DC Order Prescriptions: New acetaminophen 500 mg capsule 500 mg PO Q6H PRN (Reason: fever) Qty: 90 RF: 0 ibuprofen 600 mg tablet 600 mg PO Q6H PRN (Reason: pain) Qty: 30 RF: 0 oxycodone 5 mg tablet 5 mg PO Q6H PRN (Reason: pain) Qty: 14 RF: 0 prednisone 20 mg tablet 60 mg PO DAILY Qty: 15 RF: 0 [facility] See [facility] Instructions .Route Qty: 1 RF: 0 Continued albuterol sulfate 90 mcg/actuation HFA aerosol inhaler 1 - 2 puff inhalation .Q4-6H PRN (Reason: Shortness Of Breath) RF: 0 prenat.vits,anel,uhb-blam-yjaen Tablet 1 tab PO DAILY RF: 0 Discontinued ibuprofen 200 mg Tablet 200 mg PO Q6H PRN (Reason: Pain) RF: 0 Discharge Orders: Discharge Order (Routine); Ordered 08/17/21 Ordered By: Arnoldo Smith/Other Patient Handouts: Understanding the Pain Response, Self Care Back Day Admission Data Admit Date/Time: 08/15/21 21:37 Attending Provider: Arnoldo Bird Admit Provider: Lissette Balbuena Primary Care Provider: Cordelia Gonzalez Other Providers: Stan East ; Zohaib Pickett ; Yumiko Campos Other Interventions: Discharge Summary Assessment (RN) Last Done: 08/17/21 14:28 Supervising Physician Co-Signing Physician Notes I personally examined the patient and verified all fields points of history and exam, discussed case, and agree with decision making with Mariela Hair MS4 pain really no better. all about the same. does feel up to going home though renee noted nad heent nc at mmm breathing unlabored no accesory muscles good effort skin no rashes no pallor or icterus back pain -seems to be both biomechanical and radicular by hx and exam - but no improvement with aggressive management for biomechanical so likely this component is being driven by the radicular process and pain -no urgent surgical indications -would like to go home, stable to do so. course of prednisone. injection next week. apap, motrin, oxycodone prn pain. discussed breastmilk implications otherwise as above
--- NOTE | 2021-08-17 18:32 | Billing Data ---
Date of Service August 17, 2021 Coding Level of Care Code 10872 OBS Care - Discharge
== END 2021-08-17 15:54 | disposition home or self-care (01) ==
LOC: 3N 12:19 → ED 12:19 → SUATTDRO 21:37 → 3N 23:21